=== PATIENT | male | born 1980 | race Caucasian/White ===

== ENCOUNTER 2024-12-05 10:15 | Day surgery (SDC) | payer BC, OTHER ==
[2024-12-05] MEDS ORDERED: Propofol 200 MG/20 ML SDV ONE (13:00)
== END 2024-12-05 14:24 | disposition home or self-care (01) ==
LOC: LB.SDS 10:15
PROVIDERS: ATTEND Surgery
DX: Z12.11 Encounter for screening for malignant neoplasm of colon (principal); D12.3 Benign neoplasm of transverse colon; Z86.16 Personal history of COVID-19
CPT/HCPCS: 45380; J2704; J7030